=== PATIENT | female | born 1965 | race Caucasian/White ===

== ENCOUNTER 2017-02-08 11:34 | Outpatient (CLI) | payer BC ==
--- NOTE | 2017-02-08 12:28 | MMO ---
BILATERAL MAMMOGRAMS: DATE: 02/08/17 HISTORY: Screening mammography. COMPARISON: 03/03/10, 03/20/13, and 11/25/14. FINDINGS: Scattered fibroglandular densities and benign-appearing calcifications are apparent. Right axillary lymph nodes are now partially visualized. There is no dominant mass or suspicious calcification. The study was evaluated with the assistance of computer-aided detection. IMPRESSION: BIRADS 2: Benign Finding(s) Suggest routine follow-up. POS: [facility]
== END 2017-02-08 11:35 | disposition home or self-care (01) ==
LOC: MAMMO 11:34
PROVIDERS: ATTEND Nurse Practitioner Family
DX: Z12.31 Encounter for screening mammogram for malignant neoplasm of breast (principal)
CPT/HCPCS: 77067; G0202

== ENCOUNTER 2017-02-15 10:32 | Outpatient (CLI) | payer BC ==
--- NOTE | 2017-02-15 14:10 | ULT ---
GALLBLADDER ULTRASOUND: Date: 02/15/17 HISTORY: 51-year-old female with elevated liver enzymes. FINDINGS: The liver demonstrates homogeneous echotexture without focal mass or intrahepatic ductal dilatation. Mobile echogenic debris is seen in the gallbladder without shadowing. No gallbladder wall thickenin g or pericholecystic fluid is seen. The common duct measures 3.0 mm in diameter. The visualized port ions of the pancreas and the right kidney are unremarkable. No free fluid is seen. IMPRESSION: Gallbladder sludge, otherwise unremarkable exam. POS: [facility]
== END 2017-02-15 10:33 | disposition home or self-care (01) ==
LOC: ULT 10:32
PROVIDERS: ATTEND Internal Medicine Rheumatology
DX: R79.89 Other specified abnormal findings of blood chemistry (principal); K83.8 Other specified diseases of biliary tract
CPT/HCPCS: 76705

== ENCOUNTER 2017-07-31 12:36 | Outpatient (CLI) | payer BC ==
--- NOTE | 2017-07-31 16:34 | NM ---
NUCLEAR MEDICINE HEPATOBILIARY SCAN: DATE: 07-31-17 HISTORY: 52-year-old female with right upper quadrant abdominal pain. TECHNIQUE: [id number] dose: 5.2 mCi Ensure (fatty meal) dose: 8 oz. [id number] injected IV. Dynamic anterior scintigraphy of abdomen for 1 hour. Kinevac injected. Additional dynamic anterior scintigraphy of abdomen. Counts obtained over gallbladder. Time-activity curve generated. FINDINGS: There is normal uptake and washout of radiopharmaceutical agent from the liver. The gallbladder fill s normally. Bowel activity is visualized at an appropriate time. The gallbladder ejection fraction is normal: 84%. IMPRESSION: Normal. nicholas POS: [facility]
== END 2017-07-31 12:37 | disposition home or self-care (01) ==
LOC: NM 12:36
PROVIDERS: ATTEND Internal Medicine Gastroenterology
DX: K52.9 Noninfective gastroenteritis and colitis, unspecified (principal); R10.11 Right upper quadrant pain; R94.5 Abnormal results of liver function studies
CPT/HCPCS: 78227; A9537

== ENCOUNTER 2018-06-29 22:34 | Observation (INO) | payer BC ==
--- NOTE | 2018-06-29 23:10 | RAD ---
CHEST ONE VIEW: History: Chest pain. Comparison: 02-21-16 FINDINGS: Lungs are without focal airspace consolidation, pneumothorax or effusion. No acute osseous abnormalit y. IMPRESSION: No acute osseous abnormality. POS: [facility]
[2018-06-29 23:20] LABS: #Basophils 0.1 thou/uL (0.0-0.2); #Eosinphils 0.1 thou/uL (0.0-0.7); #Monocytes 0.6 thou/uL (0.11-0.59); %Eosinophils 1.3 % (0.0-10.0); %Lymphocytes 38.6 % (21.0-51.0); %Monocytes 7.9 % (0.0-10.0); %Neutrophils 51.2 % (42.0-75.0); Hemoglobin 13.4 g/dL (12.0-16.0); Mean Corpuscular HGB CONC 32.5 g/dL (32.0-36.0); Mean Corpuscular Hemoglobin 29.2 pg (27.0-31.0); Mean Platelet Volume 8.4 fL (7.4-10.4); Platelet Count 253 thou/uL (130-400); RBC Distribution Width 12.2 % (11.5-14.5); Red Blood Cell (RBC) Count 4.58 mill/uL (4.20-5.40); White Blood Cell (WBC) Count 7.8 thou/uL (4.8-10.8)
[2018-06-29 23:51] LABS: ALT (SGPT) 23 U/L (8-55); AST (SGOT) 27 U/L (5-34); Alkaline Phosphatase 99 U/L (40-150); Anion Gap 16 mmol/L (10-20); BUN (Urea Nitrogen) 14 mg/dL (9.8-20.1); Bilirubin, Total 0.3 mg/dL (0.2-1.2); Calc. Creatinine Clearance 0 mL/min (70-130); Calcium 9.9 mg/dL (7.8-10.44); Carbon Dioxide 19 mmol/L (22-29); Chloride 110 mmol/L (98-107); Estimated GFR-MDRD 72; Globulin 3.4 g/dL (2.4-3.5); Glucose 89 mg/dL (70-105); Potassium 4.5 mmol/L (3.5-5.1); Protein, Total 7.4 g/dL (6.0-8.3); Sodium 140 mmol/L (136-145)
[2018-06-30] MEDS ORDERED: Aspirin Chewable 81 MG TAB ONE (00:05)
[2018-06-30] MEDS ORDERED: Ondansetron PF 4 MG/2 ML Vial IVP PRN (01:34)
[2018-06-30] MEDS ORDERED: Ondansetron ODT 4 MG TAB SL PRN (01:34)
[2018-06-30] MEDS ORDERED: Acetaminophen 325 MG TAB PO PRN (01:34)
[2018-06-30] MEDS ORDERED: Nitroglycerin 0.4 MG TAB (25 Tab Bottle) SL PRN (01:35)
[2018-06-30 02:27] VITALS: BMI 38.4
[2018-06-30] MEDS ORDERED: Sodium Chloride 0.9% 1,000 ML IV SCH (02:30)
[2018-06-30] MEDS ORDERED: Bisacodyl 5 MG TAB PO PRN (02:30)
[2018-06-30] MEDS ORDERED: hydrALAZINE 20 MG/ML VIAL SLOW IVP PRN (02:57)
--- NOTE | 2018-06-30 03:47 | HP ---
PRIMARY CARE PHYSICIAN: Garrett Jones MD CHIEF COMPLAINT: Chest pain. HISTORY OF PRESENT ILLNESS: The patient is a 53-year-old female with past medical history of rheumatoid arthritis; hypertension, controlled with weight loss and diet, who presents to the emergency department for chest pain. The patient's chest pain has been going on for 3 days and it was starting to get worse especially with activities. The chest pain was resolved after the patient rest. The patient reports that her chest pain was substernal and nonradiating. The patient denies any chest pain at this point. The patient denies any history of heart problems. No history of family heart problems. The patient denies any abdominal pain, nausea , vomiting, or diarrhea. The patient does not take any other medication except for [id number]-cyopmhg Motrin. ALLERGIES: NO KNOWN ALLERGIES TO DRUGS. CURRENT MEDICATIONS: [id number] Motrin. PAST MEDICAL HISTORY: Rheumatoid arthritis. PAST SURGICAL HISTORY: Hysterectomy and tonsillectomy. SOCIAL HISTORY: The patient denies any alcohol use, drug use, or smoking. FAMILY HISTORY: Denies any history of heart problems. REVIEW OF SYSTEMS: A 10-point review of systems negative, other than mentioned in the HPI. PHYSICAL EXAMINATION: VITAL SIGNS: Blood pressure 142/84, pulse 82, respiratory rate 18, and temperature 98.4. The patient's O2 saturation is 95% on room air. GENERAL: The patient is alert and is able to respond to my questions. HEENT: Head, atraumatic. Ears, nose, and throat; no exudate or bleeding noted. NECK: No lymphadenopathy or JVD noted. CARDIOVASCULAR: No murmur, rubs, or gallop. Regular rate and rhythm. PULMONARY: Bilaterally, no wheezes noted. ABDOMEN: Soft and nontender. Bowel sounds are positive. EXTREMITIES: No edema noted. SKIN: No rashes noted. NEUROLOGIC: The patient is alert and cooperative. LABORATORY DATA: Sodium 140, potassium 4.5, chloride 110, carbon dioxide 19, BUN 14, creatinine 0.83, and glucose 89. Troponin negative. White blood cell count 7.8, hemoglobin 13.4, hematocrit 41.2, and platelets 253. DIAGNOSTIC DATA: Chest x-ray, negative for acute cardiopulmonary abnormality. EKG reviewed, appeared to be normal sinus rhythm, QT/QTC 386/438. ASSESSMENT: 1. Angina. 2. Elevated blood pressure. 3. Chest pain. PLAN: Pt will be admitted for ACS r/o. Differential diagnosis includes stable versus unstable angina. So far, first troponin negative at this point. We will trend troponin, tele. The patient reports history of pericarditis. This pain does not seem to be pericarditis in nature. The patient will be kept n.p.o. Echocardiogram ordered. Stress test ordered. Cardiology consult placed. Blood pressure above goal. We will add hydralazine p.r.n. at this point. The patient is a full code. Medical power of energy attorney, . DVT prophylaxis addressed. Job ID: [id number] MTDD
[2018-06-30 03:57] LABS: Troponin I Less than 0.010 ng/mL (< 0.028)
[2018-06-30 07:03] LABS: #Basophils 0.1 thou/uL (0.0-0.2); #Eosinphils 0.1 thou/uL (0.0-0.7); #Lymphocytes 2.5 thou/uL (1.20-3.40); #Monocytes 0.6 thou/uL (0.11-0.59); #Neutrophils 2.6 thou/uL (1.40-6.50); %Basophils 1.2 % (0.0-1.0); %Eosinophils 1.7 % (0.0-10.0); %Lymphocytes 42.5 % (21.0-51.0); %Monocytes 10.4 % (0.0-10.0); %Neutrophils 44.2 % (42.0-75.0); Hemoglobin 12.4 g/dL (12.0-16.0); Mean Corpuscular HGB CONC 32.1 g/dL (32.0-36.0); Mean Corpuscular Hemoglobin 29.3 pg (27.0-31.0); Mean Corpuscular Volume 91.4 fL (78.0-98.0); Mean Platelet Volume 8.6 fL (7.4-10.4); Platelet Count 217 thou/uL (130-400); RBC Distribution Width 12.2 % (11.5-14.5); Red Blood Cell (RBC) Count 4.24 mill/uL (4.20-5.40); White Blood Cell (WBC) Count 5.9 thou/uL (4.8-10.8)
[2018-06-30 07:23] LABS: Anion Gap 12 mmol/L (10-20); BUN (Urea Nitrogen) 13 mg/dL (9.8-20.1); Calc. Creatinine Clearance 152 mL/min (70-130); Calcium 9.4 mg/dL (7.8-10.44); Carbon Dioxide 22 mmol/L (22-29); Cardiac Risk 4.8 (Less than 4.5); Chloride 109 mmol/L (98-107); Cholesterol 192 mg/dl (< 200 Desired); Estimated GFR-MDRD 81; Glucose 83 mg/dL (70-105); HDL Cholesterol 40 mg/dL (>60 Neg Risk); LDL Cholesterol, Calculated 123 mg/dL; Potassium 3.9 mmol/L (3.5-5.1); Sodium 139 mmol/L (136-145); Triglycerides 143 mg/dL (Less than 150)
[2018-06-30 07:49] LABS: Troponin I Less than 0.010 ng/mL (< 0.028)
[2018-06-30] MEDS ORDERED: Aspirin Chewable 81 MG TAB PO SCH (09:00)
[2018-06-30] MEDS: Enoxaparin Sodium 40 MG/0.4 ML SYRINGE SC SCH (09:21)
--- NOTE | 2018-06-30 13:55 | PDOC.EVN ---
Event Note - Event Note Event Note: pt seen and examined. chart reviewed. PMH of RA associated Pericarditis All Qs ansewred. no risk factors for CAD. c/o on and off chest discomfort for 3 days suspoicious for angina get ECHO and Stress test as ordered. ASA 81 mg /day. check lipid panel. Cancel cardiology consult. monitor. HD stable
[2018-07-01] MEDS: Enoxaparin Sodium 40 MG/0.4 ML SYRINGE SC SCH (08:28)
[2018-07-01] MEDS ORDERED: Iopamidol 370 76% 100 ML VIAL ONE (10:31)
--- NOTE | 2018-07-01 13:31 | PDOC.PN ---
- Subjective Encounter Start Date: 07/01/18 Encounter Start Time: 13:30 Subjective: continues to c/o difficulty breathing w exertion and chest pressure -: worried that she might have pericarditis again & requests to be seen by -: cardiology. - Objective Resuscitation Status - Order Detail: 06/30/18 02:29 Resuscitation Status Routine Resuscitation Status: FULL: Full Resuscitation MAR Reviewed: Yes Vital Signs & Weight: Vital Signs (12 hours) Temp Pulse Resp BP Pulse Ox 07/01/18 11:38 98.5 F 82 18 138/76 94 L 07/01/18 08:00 98 F 84 18 126/78 94 L 07/01/18 04:57 98 F 81 15 130/73 96 Weight Weight 244 lb I&O: 06/30/18 07/01/18 07/02/18 06:59 06:59 06:59 Intake Total 223 1380 Output Total 225 300 Balance -2 1080 Result Diagrams: 06/30/18 06:24 06/30/18 06:24 Additional Labs: Microbiology 06/29/18 23:43 Nasal swab Influenza Types A,B Direct EIA - Final Radiology Reviewed by me: Yes (ECHO-no pericardial effusion.NL EF.mild diastolic dysFx) Phys Exam - Physical Examination Constitutional: NAD afebrile HEENT: PERRLA, moist MMs, sclera anicteric, oral pharynx no lesions Neck: no nodes, no JVD, supple, full ROM Respiratory: no wheezing, no rales, no rhonchi, clear to auscultation bilateral Cardiovascular: RRR, no significant murmur, no rub Gastrointestinal: soft, non-tender, no distention, positive bowel sounds Musculoskeletal: no edema, pulses present Neurological: non-focal, normal sensation, moves all 4 limbs Psychiatric: normal affect, A&O x 3 Skin: no rash Dx/Plan (1) Chest pain Code(s): R07.9 - CHEST PAIN, UNSPECIFIED Status: Acute Comment: NL Stress test and ECHO. Cardiac Enzymes trended and WNL. 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 will hold DC for now untill cardio clearance * . Review of Systems - Review of Systems Constitutional: malaise. negative: fever, chills, sweats, weakness, other ENT: negative: Ear Pain, Ear Discharge, Nose Pain, Nose Discharge, Nose Congestion, Mouth Pain, Mouth Swelling, Throat Pain, Throat Swelling, Other Respiratory: SOB with Excertion. negative: Cough, Dry, Shortness of Breath, Hemoptysis, Pleuritic Pain, Sputum, Wheezing Cardiovascular: chest pain. negative: palpitations, orthopnea, paroxysmal nocturnal dyspnea, edema, light headedness, other Gastrointestinal: negative: Nausea, Vomiting, Abdominal Pain, Diarrhea, Constipation, Melena, Hematochezia, Other Genitourinary: negative: Dysuria, Frequency, Incontinence, Hematuria, Retention , Other Musculoskeletal: negative: Neck Pain, Shoulder Pain, Arm Pain, Back Pain, Hand Pain, Leg Pain, Foot Pain, Other Skin: negative: Rash, Lesions, Solomon, Bruising, Other Neurological: negative: Weakness, Numbness, Incoordination, Change in Speech, Confusion, Seizures, Other - Medications/Allergies Allergies/Adverse Reactions: Allergies Allergy/AdvReac Type Severity Reaction Status Date / Time No Known Drug Allergies Allergy Verified 06/30/18 01:52 Medications: Current Medications Bisacodyl (Dulcolax) 10 mg PO DAILYPRN PRN PRN Reason: Constipation Enoxaparin Sodium (Lovenox) 40 mg SC 0900 [facility] Last Admin: 07/01/18 08:28 Dose: Not Given Hydralazine HCl (Apresoline) 10 mg SLOW IVP Q4H PRN PRN Reason: SBP Greater Than 170 Sodium Chloride (Flush - Normal Saline) 10 ml IVF Q12HR [facility] Last Admin: 07/01/18 08:29 Dose: Not Given Sodium Chloride (Flush - Normal Saline) 10 ml IVF PRN PRN PRN Reason: Saline Flush
[2018-07-01] MEDS ORDERED: Heparin 10,000 UNITS/1 ML VIAL ONE (14:32)
[2018-07-01] MEDS ORDERED: Midazolam HCl 2 mg/2 ml Vial ONE (15:37)
[2018-07-01] MEDS ORDERED: Fentanyl 100 MCG/2 ML VIAL ONE (15:37)
[2018-07-01] MEDS ORDERED: Metoprolol Tartrate 5 MG/5 ML VIAL ONE (16:40)
[2018-07-01] MEDS ORDERED: Sodium Chloride 0.9% 200 ML IV PRN (16:47)
[2018-07-01] MEDS ORDERED: Acetaminophen/Codeine 30-300mg Tablet PO PRN ×2 (16:47)
[2018-07-01] MEDS ORDERED: Nitroglycerin 0.4 MG TAB (25 Tab Bottle) SL PRN (16:47)
--- NOTE | 2018-07-01 22:37 | CON ---
DATE OF CONSULTATION: HISTORY OF PRESENT ILLNESS: The patient is a pleasant 53-year-old woman, who presents with increasing dyspnea and chest discomfort. The patient has a history of pericarditis. She states many years ago, she has had an episode of pericarditis. She has subsequently done well. She does notice having dyspnea on exertion. Most recently, she started having chest discomfort with exertion. She states with minimal exertion she develops mid sternal chest discomfort, this relieved by rest. The patient denies any chest pain at rest. The patient denies having any PND or orthopnea. PAST MEDICAL HISTORY: 1. Hypertension. 2. Rheumatoid arthritis. PAST SURGICAL HISTORY: Tonsillectomy, left shoulder surgery, hysterectomy, tubal ligation. SOCIAL HISTORY: Nonsmoker. FAMILY HISTORY: There is no strong family history of heart disease. ALLERGIES: NO KNOWN DRUG ALLERGIES. MEDICATION: On admission, Motrin p.r.n. REVIEW OF SYSTEMS: Ten-point system otherwise unremarkable. PHYSICAL EXAMINATION: GENERAL: Obese woman, in no acute distress. VITAL SIGNS: Blood pressure 130/76. NECK: No jugular venous distention. No carotid bruits. LUNGS: Clear to auscultation. HEART: Regular rate and rhythm. Normal S1, S2. No murmurs. ABDOMEN: Distended. EXTREMITIES: Showed no edema. VASCULAR: Radial pulses 2+. LABORATORY DATA: Sodium 139, potassium 3.9, chloride 109, bicarb 22, BUN 13, creatinine 0.75. Troponin less than 0.01. White blood cell count 5.9, hemoglobin 12.4, hematocrit 38.7, and platelets 217. Her EKG revealed her to have normal sinus rhythm with poor R-wave progression. The echocardiogram revealed her to have normal left ventricular ejection fraction of 50% to 55% with diastolic dysfunction, mild mitral regurgitation, mild tricuspid regurgitation. Exercise treadmill test. The patient exercised for 5 minutes on a Miki protocol. There was no significant ST depression. There was no evidence of ischemia. Normal exercise treadmill test except for poor exercise tolerance. IMPRESSION: 1. Chest pain. 2. Hypertension. 3. Rheumatoid arthritis. 4. Obesity. This patient presents with recurrent chest pain with exertion. Exercise treadmill test with no evidence of ischemia. The patient's symptoms still could represent ischemic heart disease. I have discussed the option of further evaluation including cardiac catheterization. The patient would prefer a definitive diagnosis. I will also check D-dimer to make sure there is no evidence of pulmonary embolus. PLAN: 1. Check D-dimer. 2. CT scan to rule out pulmonary embolus. 3. Proceed with possible cardiac catheterization during this hospitalization. Job ID: [id number] MIKAEL
[2018-07-02 08:06] VITALS: BP 109/81; TEMP 97.6
[2018-07-02] MEDS: Enoxaparin Sodium 40 MG/0.4 ML SYRINGE SC SCH (09:43)
--- NOTE | 2018-07-03 05:08 | DIS ---
DATE OF ADMISSION: 06/30/2018 DATE OF DISCHARGE: 07/02/2018 PRIMARY CARE PHYSICIAN: Garrett Jones MD DISCHARGE DISPOSITION: Home. DISCHARGE DIAGNOSES: 1. Chest pain, unclear etiology. Pericarditis versus angina as per Cardiology. 2. History of pericarditis. 3. Rheumatoid arthritis. PROCEDURES DONE IN THE HOSPITAL: 1. Treadmill stress test which is negative for any evidence of ischemia or reversibility. 2. Transthoracic echocardiogram, which shows preserved ejection fraction of 50% to 55% and diastolic dysfunction. 3. Cardiac catheterization which shows absolutely no coronary artery disease. CONSULTATIONS IN-HOUSE: Cardiology, Dr. Craig. DISCHARGE MEDICATIONS: Ranexa 1000 mg p.o. b.i.d. as per Dr. Craig and resume golimumab infusions as per her stock patcher. HISTORY OF PRESENTING ILLNESS: Ms. Keith is a pleasant 53-year-old female with known history of rheumatoid arthritis and history of pericarditis related to RA many years ago, who presented to the emergency room with complaints of chest pain. She was feeling pleuritic type chest pain, as well as shortness of breath on exertion. She was initially admitted to tele floor under observation status for ACS rule out. Her EKG, chest x-ray, and cardiac enzymes upon presentation were unremarkable. She was hemodynamically stable. Please see admission history and physical for further details. HOSPITAL COURSE: The patient's serial cardiac enzymes were trended and were negative. She underwent an echocardiogram as well as treadmill stress test, both of them were unremarkable. Serial cardiac enzymes were negative. Lipid panel was negative. The patient continued to have persistent symptoms and for her history of pericarditis, Cardiology was consulted. Dr. Craig saw the patient and did a D-dimer, which was negative. He also took the patient for a cardiac catheterization, which was normal and she has been started on Ranexa by him for some unknown reason. The patient tells me that it was because she was told by Dr. Craig that her coronaries are very small. This brings the possibility of possible angina-like symptoms. She wants to further discuss the use of Ranexa with her primary care physician and her primary stock patcher and I have encouraged her to do so. By the day of discharge, her symptoms have completely resolved. I did advice her that it most likely might be pericarditis, which was a self-limiting episode. If her symptoms happen again, she is encouraged to use the ibuprofen as she has done in the past. For now, she is hemodynamically stable and asymptomatic and will be discharged home. Discharge plan was discussed with the patient, who verbalized understanding. She was seen and examined prior to discharge. PHYSICAL EXAMINATION: VITAL SIGNS: This morning, vital signs, temperature 97.6, pulse of 70, respirations 18, saturating 95% on room air, and blood pressure 109/81. GENERAL: No acute distress. Awake, alert, and oriented x3. CHEST: Clear to auscultation bilaterally. HEART: Rate and rhythm are regular. She was instructed to monitor her blood pressure twice a day with a blood pressure machine that she has at home, especially if she is going to be taking the Ranexa. She is not sure if she will be taking this medication or not. She will discuss this further with her primary care physician. Job ID: [id number]
--- NOTE | 2018-07-07 13:34 | STRESS ---
Acquisition Time: 2018-06-30 09:22:17 Total Exercise Time: 00:05:01 Test Indications: CHEST PAIN Medications: Protocol: OSMAR Max HR: 164 BPM 98% of Pred: 167 BPM Max BP: 162/080 mmHG Max Work Load: 7.0 METS RESTING ECG: NORMAL SINUS RHYTHM AT 91 BPM WITH POOR R-WAVE PROGRESSION SYMPTOMS: DYSPNEA ON EXERTION NORMAL BP RESPONSE ECTOPY: RARE PVC'S ECG STRESS: NO SIGNIFICANT CHANGES INTERPRETATION: NEGATIVE GXT Confirmed by FLOYD MANZO ([id number]), book or script editor MAURO CASTANO ([id number]) on 07/07/2018 1:33:50 PM Referred By: MD Griselda MONREAL Confirmed By:FLOYD MANZO
== END 2018-07-02 12:08 | disposition home or self-care (01) ==
LOC: ERS 22:34 → 2SW 06-30 01:19
PROVIDERS: ADMIT Family Medicine; ATTEND Family Medicine
PROC: 4A023N7 Measurement of Cardiac Sampling and Pressure, Left Heart, Percutaneous Approach (ICD-10-PCS; principal; 2018-07-02)
PROC: B2151ZZ Fluoroscopy of Left Heart using Low Osmolar Contrast (ICD-10-PCS; 2018-07-02)
DX: R07.81 Pleurodynia (principal); R06.02 Shortness of breath; M06.9 Rheumatoid arthritis, unspecified; I10 Essential (primary) hypertension; E66.9 Obesity, unspecified; Z68.38 Body mass index [BMI] 38.0-38.9, adult
CPT/HCPCS: 36415; 71045; 80048; 80053; 80061; 84484; 85025; 85379; 87804; 93005; 93010; 93017; 93306; 93458; 94760; 96360; 96361; 99152; 99153; C1769; G0378; J1644; J1650; J2250; J3010; Q9967

== ENCOUNTER 2018-07-04 17:38 | Inpatient (IN) | payer BC ==
[~2018-07-04 17:38] MED LIST: ISOVUE-370 76%-LOCM 1 ML ONE
[2018-07-04 18:18] LABS: #Basophils 0.1 thou/uL (0.0-0.2); #Eosinphils 0.1 thou/uL (0.0-0.7); #Lymphocytes 3.2 thou/uL (1.20-3.40); #Monocytes 0.6 thou/uL (0.11-0.59); #Neutrophils 4.2 thou/uL (1.40-6.50); %Basophils 1.2 % (0.0-1.0); %Eosinophils 1.5 % (0.0-10.0); %Lymphocytes 38.5 % (21.0-51.0); %Monocytes 7.8 % (0.0-10.0); Hemoglobin 14.6 g/dL (12.0-16.0); Mean Corpuscular HGB CONC 31.8 g/dL (32.0-36.0); Mean Corpuscular Hemoglobin 28.9 pg (27.0-31.0); Mean Corpuscular Volume 90.7 fL (78.0-98.0); Mean Platelet Volume 8.4 fL (7.4-10.4); Platelet Count 290 thou/uL (130-400); RBC Distribution Width 12.3 % (11.5-14.5); Red Blood Cell (RBC) Count 5.04 mill/uL (4.20-5.40); White Blood Cell (WBC) Count 8.2 thou/uL (4.8-10.8)
[2018-07-04 18:38] LABS: ALT (SGPT) 17 U/L (8-55); AST (SGOT) 17 U/L (5-34); Albumin 4.5 g/dL (3.5-5.0); Alkaline Phosphatase 114 U/L (40-150); Anion Gap 14 mmol/L (10-20); BUN (Urea Nitrogen) 19 mg/dL (9.8-20.1); Bilirubin, Total 0.4 mg/dL (0.2-1.2); CK (CPK) 34 U/L (29-168); Calc. Creatinine Clearance 0 mL/min (70-130); Calcium 10.6 mg/dL (7.8-10.44); Carbon Dioxide 25 mmol/L (22-29); Chloride 105 mmol/L (98-107); Estimated GFR-MDRD 65; Glucose 89 mg/dL (70-105); Potassium 3.9 mmol/L (3.5-5.1); Protein, Total 7.5 g/dL (6.0-8.3); Sodium 140 mmol/L (136-145)
--- NOTE | 2018-07-04 19:43 | RAD ---
TWO VIEWS CHEST 07/04/18 HISTORY: Dyspnea. COMPARISON: Comparison made to previous exam from 06/23/13. FINDINGS/IMPRESSION: Two views chest demonstrates the lungs to be well aerated. No evidence of active intrathoracic diseas e seen. No evidence of effusions, pneumonia or pneumothorax seen. POS: [facility]
[2018-07-04 20:00] LABS: Bilirubin Negative (Negative); Blood, Urine Negative (Negative); Clarity CLEAR (Clear); Glucose, Urine (Dipstick) Negative (Negative); Leukocyte Negative (Negative); Nitrite Negative (Negative); Protein, Urine (Dipstick) Negative (Neg-Trace); Specific Gravity, Urine 1.012 (1.002-1.036); Urobilinogen 0.2 mg/dL (0.2-1.0)
[2018-07-04] MEDS ORDERED: Piperacillin/Tazobactam 4.5 GM VIAL ONE (20:37)
[2018-07-04] MEDS ORDERED: Enoxaparin Sodium 30 MG/0.3 ML SYRINGE ONE (20:39)
[2018-07-04] MEDS ORDERED: Enoxaparin Sodium 100 MG/ML SYRINGE ONE (20:39)
[2018-07-04] MEDS ORDERED: Enoxaparin Sodium 60 MG/0.6 ML SYRINGE ONE (20:42)
[2018-07-04] MEDS ORDERED: Enoxaparin Sodium 40 MG/0.4 ML SYRINGE ONE (20:42)
--- NOTE | 2018-07-04 20:56 | CT ---
CONTRAST ENHANCED CTA CHEST 07/04/18 HISTORY: Dyspnea. Contrast enhanced CTA chest performed. 2D and 3D reconstruction images performed on an independent 3D workstation. CTA chest demonstrates extensive diffuse bilateral lung parenchymal air space opacities compatible wi th pulmonary edema. There is some cardiomegaly seen. There are areas of filling defect seen in the right upper lobe pulmonary arteries concerning for righ t upper lobe pulmonary emboli. IMPRESSION: 1. Bilateral extensive air space opacities concerning for pulmonary edema or bilateral pneumonia . 2. Filling defects seen in the right upper lobe pulmonary arteries compatible with pulmonary emb lane. POS: [facility]
[2018-07-04] MEDS ORDERED: diphenhydrAMINE 50 MG/ML VIAL ONE (21:59)
[2018-07-05 00:15] VITALS: BMI 38.5
[2018-07-05] MEDS ORDERED: Ondansetron ODT 4 MG TAB PO PRN (02:04)
[2018-07-05] MEDS ORDERED: Acetaminophen 650 MG Suppository PR PRN (02:04)
[2018-07-05] MEDS ORDERED: Ondansetron PF 4 MG/2 ML Vial IVP PRN (02:04)
[2018-07-05 06:06] LABS: #Basophils 0.1 thou/uL (0.0-0.2); #Eosinphils 0.1 thou/uL (0.0-0.7); #Lymphocytes 2.6 thou/uL (1.20-3.40); #Monocytes 0.6 thou/uL (0.11-0.59); #Neutrophils 2.7 thou/uL (1.40-6.50); %Basophils 1.6 % (0.0-1.0); %Eosinophils 1.6 % (0.0-10.0); %Lymphocytes 42.4 % (21.0-51.0); %Monocytes 10.1 % (0.0-10.0); %Neutrophils 44.3 % (42.0-75.0); Hemoglobin 14.4 g/dL (12.0-16.0); Mean Corpuscular HGB CONC 32.5 g/dL (32.0-36.0); Mean Corpuscular Hemoglobin 29.4 pg (27.0-31.0); Mean Corpuscular Volume 90.5 fL (78.0-98.0); Mean Platelet Volume 8.3 fL (7.4-10.4); Platelet Count 252 thou/uL (130-400); RBC Distribution Width 12.4 % (11.5-14.5); Red Blood Cell (RBC) Count 4.89 mill/uL (4.20-5.40)
[2018-07-05 06:28] LABS: Anion Gap 12 mmol/L (10-20); BUN (Urea Nitrogen) 17 mg/dL (9.8-20.1); Calc. Creatinine Clearance 136 mL/min (70-130); Calcium 10.2 mg/dL (7.8-10.44); Carbon Dioxide 23 mmol/L (22-29); Chloride 107 mmol/L (98-107); Estimated GFR-MDRD 71; Glucose 92 mg/dL (70-105); Sodium 138 mmol/L (136-145)
--- NOTE | 2018-07-05 07:36 | HP ---
PRIMARY CARE DOCTOR: Garrett Jones MD CODE STATUS: Full code. TIME OF EVALUATION: 08:50 p.m. CHIEF COMPLAINT: Shortness of breath. HISTORY OF PRESENT ILLNESS: This is a 53-year-old female patient with past medical history of recent admission. The patient received cardiac workup including cardiac cath and no abnormalities were found, also has a history of RA, pericarditis on immunosuppression medications, came to the hospital after having shortness of breath, that has been present for the past few weeks with no clear triggers, no alleviating factors. Has become severe, has been getting worse. The patient with inability to do her activities of daily living. REVIEW OF SYSTEMS: CONSTITUTIONAL: No fever, chills, or generalized weakness. RESPIRATORY: The patient has shortness of breath as described in HPI. No sputum production. No cough. CARDIOVASCULAR: No chest pain or palpitation. GASTROINTESTINAL: No nausea, no vomiting, diarrhea, or abdominal pain. BOOM BOSS: No dizziness, headache, or feeling lightheaded. GENITOURINARY: No burning on urination. EXTREMITIES: No leg swelling. All other systems were reviewed and negative except for the findings mentioned above. PAST MEDICAL HISTORY: As mentioned in the HPI. PAST SURGICAL HISTORY: Left shoulder surgery, tubal ligation, surgical history of hysterectomy, and surgical history of tonsillectomy. PSYCHIATRIC HISTORY: No previous psych history. SOCIAL HISTORY: No alcohol. No drugs. No smoking history. FAMILY HISTORY: Reviewed and noncontributory to current presentation. KNOWN ALLERGIES: No known drug allergies. REPORTED MEDICATIONS: Motrin. PHYSICAL EXAMINATION: VITAL SIGNS: On presentation, blood pressure 135/87 with heart rate 87, respiratory rate was 18, temperature 98.1, and oxygen saturation was 97% on room air. GENERAL APPEARANCE: The patient is alert, oriented, no acute distress. HEENT: Eye, normal conjunctivae. Moist oral mucosa. Anicteric. No JVD. RESPIRATORY: Bilateral air entry. No rales, no wheezes. Symmetric expansion. CARDIOVASCULAR: Normal rate, regular rhythm. No murmurs, no gallops. No edema. ABDOMEN: Soft. Normal bowel sounds. MUSCULOSKELETAL: Baseline range of motion and strength. No tenderness. SKIN: Warm and intact. No pallor. No rash. No redness. Peripheral pulses are present. Capillary refill seems to be intact. NEURO: No evidence of any new focal weakness. Baseline speech. Cranial nerve seems to be intact. PSYCH: The patient is in good mood. No anxiety. Optimal judgment. IMAGING STUDIES: EKG was reviewed. The patient has normal sinus rhythm with a rate of 88, OH 176, QRS 60, and QT corrected 404. Chest x-ray, two-views chest demonstrate the lungs to be well-hydrated. No evidence of active intrathoracic disease. No evidence of effusion or pneumonia or pneumothorax in the chest CT. The patient has bilateral extensive airspace opacities concerning for pulmonary edema, bilateral pneumonia, filling defect seen in the right upper lobe, pulmonary arteries compatible with pulmonary embolism. LABORATORY DATA: Labs were reviewed. The patient has white count 8.2, hemoglobin 14.6, MCV 90.7, platelet count 290. ESR is 38. Sodium 140, potassium 3.9, chloride 105, carbon dioxide 25, anion gap 14, BUN 19, creatinine 0.9, GFR 65, glucose 89, calcium 10.6, total bilirubin 0.4, AST 17, ALT 17, alkaline phosphatase 114. CK 34, troponin 1 negative. C-reactive protein 0.67. Beta-natriuretic peptide was less than 10. Serum total protein 7.5. Urine was negative. ASSESSMENT AND PLAN: The patient has been placed in the hospital with following medical problems: 1. Pulmonary embolism seen on the CAT scan. The patient has been started on anticoagulation, will be continued for now. She is switched to p.o. as soon as the patient decides which anticoagulant to begin her on. 2. Abnormal CT chest and bilateral haziness and ground-glass opacities of unclear etiology. Dr. Sims is being consulted as per the patient's request, who is a shactor helper she would like to see, this may be related to the patient's current presentations, this could be secondary to rheumatoid arthritis. 3. Rheumatoid arthritis. Reconcile home medications. Adjust as needed. 4. Deep venous thrombosis prophylaxis. The patient received full dose Lovenox. Job ID: [id number]
[2018-07-05 09:00] LABS: Hemoglobin 13.8 g/dL (12.0-16.0); Platelet Count 232 thou/uL (130-400)
[2018-07-05] MEDS: Enoxaparin Sodium 120 MG/0.8 ML SYRINGE SC SCH ×2 (09:12→20:15)
[2018-07-05] MEDS: Famotidine/PF 20 mg/2ml Vial SLOW IVP SCH ×2 (09:13→20:15)
--- NOTE | 2018-07-05 14:32 | PRG ---
DATE OF SERVICE: 07/05/2018 SUBJECTIVE: The patient was seen and examined at the bedside with family several members were present in the room during my visit. She feels slightly better. She says that she had chills at home. She did not check her temperature. OBJECTIVE: VITAL SIGNS: Blood pressure is 115/67; temperature is 98.2, maximal temperature is 98.3; respiratory rate is 20, and O2 saturations 94% on 2 L by nasal cannula. HEENT: Head is atraumatic and normocephalic. Eyes are PERRLA. Sclerae are nonicteric. Oral mucosa is moist. NECK: Supple. LUNGS: Few crackles at both bases. HEART: S1 and S2 normal. No S3. No S4. No any murmur. ABDOMEN: Soft, obese, and nontender. Bowel sounds are present. No organomegaly. EXTREMITIES: No clubbing, cyanosis, or edema. NEUROLOGIC: She is alert and oriented x4. There is no any motor or sensory deficits present. Cranial nerves are intact. LABORATORY DATA: Labs showed normal chemistry; normal CBC, creatinine 0.91. Microbiology, preliminary, two blood cultures, no growth. IMPRESSION: 1. Shortness of breath with positive findings on the CT scan for pulmonary embolism and bilateral lower lobes ground-glass opacities of unclear etiology. The patient received 3 antibiotics in the emergency room and she had itching reaction post that, so she was not continued on any antibiotics after this reaction. Cranberry Grower, Dr. Hernandez is coming to see her. She is on full dose of Lovenox at this point. She is on O2. 2. Rheumatoid arthritis, biologic, which is Simponi Aria every eight weeks and last dose was 3 to 4 weeks ago. PLAN: She will continue on her full dose of Lovenox for PE. We will get Doppler of her lower extremities. We will continue O2 and we will get Pulmonary consultation with Dr. Hernandez and we are holding off using any antibiotics for now until he sees the patient. Job ID: [id number]
--- NOTE | 2018-07-05 15:24 | ULT ---
BILATERAL LOWER EXTREMITY VENOUS DUPLEX SONOGRAM: Date: 07/05/18 HISTORY: Bilateral leg pain and edema. Pulmonary emboli. FINDINGS: Each common femoral vein and greater saphenous junction were evaluated along with each femoral and de ep femoral, popliteal, and posterior tibial vein. There is good color and spectral Doppler flow, comp ression, and augmentation. IMPRESSION: No sonographic evidence of deep venous thrombosis within either lower extremity. POS: [facility]
--- NOTE | 2018-07-05 18:15 | CON ---
DATE OF CONSULTATION: 07/05/2018 SERVICE: Pulmonary Medicine. REASON FOR CONSULTATION: Pulmonary infiltrate. HISTORY OF PRESENT ILLNESS: The patient is a 53-year-old white female with past medical history significant for essentially nothing. She has rheumatoid arthritis and is on disease modifying therapy (golimumab). Outside of this, she takes no medications. She does use a lot of essential oils. She was in her usual state of health until about 3 to 4 weeks prior to presentation when she started having generalized malaise and lack of energy. Eventually, she started having some onset of a little bit of chest discomfort and shortness of breath, particularly with exertion. She presented to the hospital on June 30, 2018. Ultimately, she was worked up for chest discomfort. She had an echocardiogram and cardiac catheterization that were essentially unremarkable. She was subsequently discharged from the hospital on the 02 July 2018. Two days later, she returned to the hospital because of increasing dyspnea with exertion and chest discomfort. Chest x-ray was essentially unremarkable, but a CTA of the chest showed a small pulmonary embolism, which was questionable at best and diffuse ground-glass opacifications throughout bilateral lung kaplan. She indicates having some feelings of being febrile. That being said, she never really took her temperature. Otherwise, she is in her usual state of health and has no specific complaints. Her rheumatoid arthritis has been under excellent control. She has not had any hot or red swollen joints, rashes, dysuria, or frequency. She has never had a procedure that pulled fluid off her lung or her heart. She has not had any eye infections or require eye medications at any point. Her vision is essentially unremarkable. PAST MEDICAL HISTORY: 1. Rheumatoid arthritis. 2. History of pericarditis. PAST SURGICAL HISTORY: 1. Left shoulder surgery. 2. Tubal ligation. 3. Hysterectomy. 4. Tonsillectomy. 5. Cardiac catheterization. SOCIAL HISTORY: Negative for alcohol, tobacco, or illicit drug use. She has no exposure to chemicals, dust, asbestos, or tuberculosis. She gets an annual PPD. This has been negative to date. She does use a lot of essential oils that she rubs into her feet and hands. FAMILY HISTORY: Noncontributory. ALLERGIES: LEVOFLOXACIN OR VANCOMYCIN CAUSED A LITTLE BIT OF A RASH AND SEVERE PRURITUS. MEDICATIONS: List of her outpatient and inpatient medications was reviewed. Multiple updates were made. REVIEW OF SYSTEMS: General, head, ears, eyes, nose, throat, cardiovascular, respiratory, GI, , musculoskeletal, neurologic, and skin are negative except as mentioned in the HPI. PHYSICAL EXAMINATION: VITAL SIGNS: Afebrile, pulse 82, blood pressure 115/67, respirations 20, and saturation 94% on 2 L nasal cannula. GENERAL: The patient is awake and alert, in no apparent distress. LUNGS: There is absolutely wonderful air entry and no hint of a prolonged expiratory phase. There are absolutely no crackles, wheezing, or rhonchi present. HEART: Normal rate. Regular. ABDOMEN: Soft, nontender, and nondistended. Bowel sounds are positive. MUSCULOSKELETAL: No cyanosis or clubbing. There is no pitting in the bilateral lower extremities. NEUROLOGIC: Grossly nonfocal. LABORATORY DATA: CBC is completely unremarkable. The differential is close to normal. Lymphocyte neutrophil counts are perfectly normal. Basophils will predominate slightly. The eosinophils certainly fall within the normal limits. The absolute count is also unremarkable. D-dimer 0.4. Basic metabolic profile and liver function studies are unremarkable. Cardiac enzyme is negative x1, BNP was below the assay limits of normal, CRP 0.67 is minimally elevated. ESR 38. Recent urinalysis was negative for hematuria or proteinuria. Blood cultures x2, influenza A and B are negative. IMAGING STUDIES: Ultrasound of the bilateral lower extremities demonstrates no evidence of DVT. CTA of the chest demonstrates questionable pulmonary embolism. More striking, however, is the bilateral diffuse ground-glass opacifications throughout bilateral lung kaplan. There seems to be a distribution that favors the dependent posterior and inferior portions of the lung kaplan. Anteriorly, things are spared ever so slightly. That being said, the involvement is quite diffuse. ASSESSMENT: 1. Pulmonary infiltrate, characterized by diffuse ground-glass opacifications with a very subtle fullness in the interstitium. 2. Acute pulmonary embolism, possible. 3. Rheumatoid arthritis, only using TNF alpha inhibitor (golimumab). DISCUSSION AND PLAN: I have no idea what is going on here. The differential remains quite wide. It could be an effect of the medication, which is well documented to cause pneumonitis, pulmonary vasculopathies, ANCA positive vasculitis, and tuberculosis. Additionally, it could be an affect of her connective tissue disease. As such, we will go ahead and hold that medication for the time being. The urinalysis was negative for any hematuria making vasculitides a little less common. That being said, we will do an ANETTE, ANCA, CCP, rheumatoid factor, anti- Char-1 antibodies, and IgG4 level. In addition to these, Fungitell and fungal serologies will be obtained. Lastly, lipoid pneumonia certainly within our differential. I think that we were likely dealing with hematogenous event, however, because of the distribution on the CT of the chest. Usually, inhaled things would prefer to go to the superior portions of the lung. As such, I think hypersensitivity pneumonitis is a little less likely. Lastly, we will get a respiratory virus panel looking for viral issues. CMV and HSV should not be a culprit here. As such, I will hold off on those serologies. I give her nebulized medication. We will give her p.r.n. nebs if that initial one helps. I will empirically treat her for atypical infectious processes with doxycycline. We will also throw some Omnicef at her. This will be limited to a 5-day course. Once again, however, I do not think these things are going to be helpful. We will await a little bit of time to see if some of the serologies return. I will likely plan on doing a bronchoscopy on Saturday of next week. This will help us further delineate whether or not infectious process is occurring. If we identify initial on transbronchioles, that will be wonderful. But more than likely, if that is not helpful, we will be moving toward an open lung biopsy at some point in the future. Hopefully, this would not be in the inpatient setting. Pulmonary/Critical Care will continue to follow along. She will need to remain in-house for the time being. 70 minutes have been devoted to this patient in various activities. I personally reviewed all imaging studies and laboratory data noted within this document. For fifty percent of this time, I was interacting with the patient at the bedside or coordinating care with the care team. For the remainder of the time I was immediately available to the patient in the hospital unit. Job ID: [id number] [facility]ENTER[facility]antz
[2018-07-05] MEDS: Cefdinir 300 MG CAP PO SCH (20:15)
[2018-07-05] MEDS: Doxycycline 100 MG CAP PO SCH (20:15)
[2018-07-06] MEDS: Cefdinir 300 MG CAP PO SCH ×2 (08:12→21:58)
[2018-07-06] MEDS: Doxycycline 100 MG CAP PO SCH ×2 (08:13→21:58)
[2018-07-06] MEDS: Enoxaparin Sodium 120 MG/0.8 ML SYRINGE SC SCH ×2 (08:13→21:39)
[2018-07-06] MEDS: Famotidine/PF 20 mg/2ml Vial SLOW IVP SCH ×2 (08:16→21:43)
--- NOTE | 2018-07-06 14:29 | PRG ---
DATE OF SERVICE: 07/06/2018 SUBJECTIVE: The patient is seen and examined at the bedside. She seems to be doing slightly better. Her family is present in the room during my visit. OBJECTIVE: VITAL SIGNS: Blood pressure is 132/88, pulse is 87, temperature is 97.6, maximal temperature is 98.3, respiratory rate is 16, O2 saturation is 92% on room air. HEENT: Head is atraumatic and normocephalic. Eyes are PERRLA. Sclerae are nonicteric. Oral mucosa is moist. NECK: Supple. LUNGS: Few wheezes and few crackles at the base. HEART: S1 and S2 normal. No S3. No S4. ABDOMEN: Soft, nontender. Bowel sounds are present. No organomegaly. EXTREMITIES: No clubbing, cyanosis, or edema. NEUROLOGIC: She is alert and oriented x4. There are no any motor or sensory deficits. Cranial nerves are intact. LABORATORY DATA: Third generation TSH 2.1525. BNP less than 10.0. C-reactive protein 0.67, slightly elevated. Microbiology: Viral panel negative. Doppler of both lower extremities, no DVTs. IMPRESSION: 1. Acute pulmonary embolism as possible. 2. Bilateral diffuse ground-glass opacifications in both lower lobes, unclear etiology. 3. Rheumatoid arthritis, on biologic golimumab, which is TNF alpha-inhibitor. DISCUSSION: The patient was seen by Dr. Hernandez where differential diagnosis is very broad. He is planning to do bronchoscopy to get a sample and she might have further evaluation with open lung biopsy in the future. At this point, we are going to continue her current full dose of Lovenox for her PE and she is started on cefdinir and doxycycline by morgue technician, we will continue those two. Job ID: [id number]
[2018-07-06] MEDS ORDERED: Sodium Chloride 0.65% Nasal 44 ML BOT EA NARE PRN (20:30)
--- NOTE | 2018-07-06 21:16 | PRG ---
DATE OF SERVICE: 07/06/2018 SUBJECTIVE: Pulmonary Medicine. INTERVAL HISTORY: The patient is doing okay from respiratory standpoint. Whenever she gets up and walks around, she does have shortness of breath. It slows her down. She seems to think she has ever so slightly better. That being said, I think she just tells me what she wants me to hear. She denies any new chest pain, nausea, vomiting, or diarrhea. There has been no interval change to her condition. She is coughing up a little bit of yellow sputum. She had a little bit of nosebleed last night, which is improved since the humidified air. PHYSICAL EXAMINATION: VITAL SIGNS: Afebrile. Pulse 81, blood pressure 130/92, respirations 20, saturation 92% on room air. GENERAL: The patient is awake and alert, in no apparent distress. LUNGS: Decent air entry. There is good air entry without a prolonged expiratory phase, wheezing, rhonchi, or crackles. HEART: Normal rate and regular. ABDOMEN: Soft, nontender, nondistended. Bowel sounds are positive. MUSCULOSKELETAL: No cyanosis or clubbing. There is no pitting in the bilateral lower extremities. NEUROLOGIC: Grossly nonfocal. LABORATORY DATA: TSH is essentially unremarkable at this point. Urinalysis is negative. Respiratory virus panel is completely unremarkable. Blood cultures x2 are negative. ASSESSMENT: 1. Acute pulmonary embolism, possible. 2. Pulmonary infiltrate, characterized by diffuse ground-glass opacifications with a very subtle fullness in the interstitium, predominantly in the bibasilar/ dependent regions. 3. Rheumatoid arthritis, using TNF alpha inhibitor (golimumab). DISCUSSION AND PLAN: Differential remains wide. We have multiple serologies that are currently pending. I am not quite certain whether or not they have been collected. Pulmonary/Critical Care will continue to follow along. Once we started seeing some serologies return, if things come back unremarkable and her oxygen requirements do not improve, we will likely be looking at doing a bronchoscopy, Saturday. Job ID: [id number] [facility]
[2018-07-07] MEDS ORDERED: Furosemide 20 MG/2 ML VIAL SLOW IVP SCH (06:00)
[2018-07-07 09:45] LABS: Hemoglobin 14.3 g/dL (12.0-16.0); Platelet Count 251 thou/uL (130-400)
[2018-07-07] MEDS: Famotidine/PF 20 mg/2ml Vial SLOW IVP SCH (10:00)
[2018-07-07] MEDS: Cefdinir 300 MG CAP PO SCH ×2 (10:01→20:59)
[2018-07-07] MEDS: Doxycycline 100 MG CAP PO SCH ×2 (10:01→20:59)
[2018-07-07] MEDS: Enoxaparin Sodium 120 MG/0.8 ML SYRINGE SC SCH (10:03)
--- NOTE | 2018-07-07 11:08 | PRG ---
DATE OF SERVICE: 07/07/2018 SUBJECTIVE: The patient is seen and examined at the bedside. She seems to be doing somewhat better. Her appetite is fair. She had bowel movements. Her shortness of breath is somewhat improved. OBJECTIVE: VITAL SIGNS: Blood pressure is 109/73, pulse is 76, temperature is 97.8, maximal temperature is 99.3, respirations 18, O2 saturation is 92% on room air. HEENT: Head is atraumatic and normocephalic. Eyes are PERRLA. Sclerae are nonicteric. Oral mucosa is moist. NECK: Supple. Thyroid is not palpable. LUNGS: Few rales but minimal at both bases. HEART: S1 and S2 normal. No S3. No S4. ABDOMEN: Soft, obese, nontender. EXTREMITIES: No clubbing, cyanosis, or edema. NEUROLOGIC: She is alert and oriented x4. There are no any motor or sensory deficits present. Cranial nerves are intact. LABORATORY DATA: Hemoglobin of 14.3, hematocrit 43.9, and platelet count is 251,000. Creatinine 0.87. IMPRESSION: 1. Possible acute pulmonary embolism. 2. Bilateral diffuse ground-glass opacification in both lower lobes under diagnostic workup. 3. Rheumatoid arthritis. The patient was on biologic golimumab. DISCUSSION: The patient is doing clinically better. She does not require any O2 at this point. Equity Analyst wants to bronch her tomorrow morning. So far we just have her viral panel back, which is negative. The rest of the workup is still pending. We will continue full dose of Lovenox 110 mg every 12 hours. Continue both antibiotics cefdinir and doxycycline and Gilson reveles Job ID: [id number]
--- NOTE | 2018-07-07 17:03 | PRG ---
DATE OF SERVICE: 07/07/2018 SERVICE: Pulmonary Medicine. INTERVAL HISTORY: The patient is doing a little better from a respiratory standpoint. She continues to cough up yellow sputum. Denies any current chest pain, fevers, or chills. There were no overnight events. She seems to think that she is getting a little bit better, but her family is constantly reminding her that she is not being nearly as active as she was previously. Previously, she did not have a lot of symptoms when she was lying down. Otherwise, there has been no interval change to her condition. PHYSICAL EXAMINATION: VITAL SIGNS: Afebrile, pulse 87, blood pressure 125/57, respirations 20, saturation 87% on room air. GENERAL: The patient is awake and alert, in no apparent distress. LUNGS: Decent air entry. I do not appreciate any rhonchi or crackles. HEART: Normal rate and regular. ABDOMEN: Soft, nontender, and nondistended. Bowel sounds are positive. MUSCULOSKELETAL: No cyanosis or clubbing. There is no pitting in the bilateral lower extremities. NEUROLOGIC: Grossly nonfocal. LABORATORY DATA: Hemoglobin and platelet count are unremarkable. TSH and creatinine are also normal. Urinalysis is negative. Respiratory virus panel was negative for any viral pathogens. Blood cultures x2 are negative. ASSESSMENT: 1. Acute pulmonary embolism, likely. 2. Pulmonary infiltrate, characterized by diffuse ground-glass opacifications with very subtle fullness of the interstitium, predominantly in the bibasilar/dependent regions. 3. Rheumatoid arthritis, using TNF-alpha inhibitor (golimumab). DISCUSSION AND PLAN: Our differential remains wide. I am going to interrupt her Lovenox tonight and take her down for a bronchoscopy tomorrow morning. Multiple serologies are currently pending. Respiratory virus panel was unremarkable. She seems to think that things are ever so slightly better. That being said, we are not really comparing apples to apples. I have asked for her to get up and walk the hallways much more frequently, carrying a load characteristic of what she would do when she is doing laundry. She will let me know tomorrow morning whether or not she has significant improvement in symptoms based on this level of activity. Job ID: [id number]
[2018-07-07] MEDS: Famotidine 20 MG TAB PO SCH (21:00)
[2018-07-08] MEDS: Famotidine 20 MG TAB PO SCH ×2 (07:47→21:03)
[2018-07-08] MEDS: Cefdinir 300 MG CAP PO SCH ×2 (07:47→21:03)
[2018-07-08] MEDS: Doxycycline 100 MG CAP PO SCH ×2 (07:47→21:03)
[2018-07-08] MEDS ORDERED: Fentanyl 100 MCG/2 ML VIAL ONE (10:54)
[2018-07-08 12:16] LABS: IgG Subclass 4 32 mg/dL (2-96)
[2018-07-08] MEDS ORDERED: Glycopyrrolate 0.2 MG/ML 5 ML SYRINGE ONE (12:46)
[2018-07-08] MEDS ORDERED: Succinylcholine Chloride 20 MG/ML 10 ml SYRINGE FS ONE (12:46)
[2018-07-08] MEDS ORDERED: Ondansetron PF 4 MG/2 ML Vial ONE (12:46)
[2018-07-08] MEDS ORDERED: PROPOFOL 200 MG/20 ML VIAL ONE (12:46)
[2018-07-08] MEDS ORDERED: Lidocaine 1% PF 5 ML VIAL ONE (12:46)
[2018-07-08] MEDS ORDERED: Rocuronium Bromide 10 MG/ML (10ML VIAL) ONE (12:46)
[2018-07-08] MEDS: Acetaminophen 325 MG TAB PO PRN ×2 (13:29→22:41)
--- NOTE | 2018-07-08 14:42 | PQF ---
MICHAEL MARTINES ZBIGNIEW A MD [id number] [facility]255 [id number] CLINICAL DOCUMENTATION IMPROVEMENT CLARIFICATION FORM: ICD-10 Updated PLEASE DO AN ADDENDUM TO THE PROGRESS NOTE WITH ANY DOCUMENTATION UPDATES OR ADDITIONS AND CARRY THROUGH TO DC SUMMARY. THANK YOU. DATE: 07/08/18 ATTN: DR Keerthi TAYLOR Please exercise your independent, professional judgment in responding to the clarification form. Clinical indicators are provided on the bottom of this form for your review. Please check appropriate box(s): Conflicting documentation was noted in the Medical Record, please clarify if patient is being treated/monitored for: [ ]Acute pulmonary edema [ ] Acute pulmonary edema (not caused by acute heart failure) [ X ] Other diagnosis ___PE [ ] Unable to determine In addition, please specify: Present on Admission (POA): [ X ] Yes [ ] No [ ] Unable to determine For continuity of documentation, please document condition throughout progress notes and discharge summary. Thank You. CLINICAL INDICATORS - SIGNS / SYMPTOMS/ LABS 3/2 ED PHYSICIAN DX: PULMONARY EMBOLISM W/O COR PULMONALE, PULMONARY EDEMA 3/2 H & P (CAROLYN) IMAGING STUDIES- THE PATIENT HAS BILATERAL EXTENSIVE AIRSPACE OPACITIES CONCERNING FOR PULMONARY EDEMA RISK: PULMONARY EMBOLISM TREATMENTS: 3/2 PULMONARY CONSULT ANTICOAGULATION LOVENOX (3-PRESENT) THANK YOU ! MIHAI (This form is maintained as a part of the permanent medical record) 2014 [employer] All Rights Reserved [email or web address] [phone] [facility]
--- NOTE | 2018-07-08 14:56 | PRG ---
DATE OF SERVICE: 07/08/2018 SUBJECTIVE: The patient is seen and examined at the bedside. Her daughter is present in the room during my visit. She just came back from bronchoscopy done by Dr. Hernandez. We are awaiting for the report. OBJECTIVE: VITAL SIGNS: Blood pressure is 111/66, pulse is 78, temperature is 97.7, respiratory rate is 16, O2 saturation is 92% on 2 L by nasal cannula. HEENT: Head is atraumatic and normocephalic. Eyes are PERRLA. Sclerae are nonicteric. Oral mucosa is moist. NECK: Supple. LUNGS: Clear. HEART: S1, S2, normal. ABDOMEN: Soft and nontender. EXTREMITIES: No clubbing, cyanosis, or edema. LABORATORY DATA: IgG4 32, which is within normal limits. Serology for fungus is pending and multiple other tests are pending. IMPRESSION: 1. Possible acute pulmonary embolism. 2. Bilateral diffuse ground-glass opacification in both lower lobes at diagnostic workup. 3. Rheumatoid arthritis. The patient is on biologic golimumab prior to this hospitalization. DISCUSSION: The patient is doing clinically somewhat better. She just had her bronchoscopy. We should have results preliminary in the next few hours. We have IgG4 level back, which is within normal limits so far. She will continue DuoNeb p.r.n. and we are going to continue her pulmonary workup as per Dr. Hernandez. on Omnicef and Vibramycin, and make decision when she can be placed on anticoagulation. Job ID: [id number]
--- NOTE | 2018-07-08 16:29 | PRG ---
DATE OF SERVICE: 07/08/2018 SERVICE: Pulmonary Medicine. INTERVAL HISTORY: The patient is doing fine from respiratory standpoint. She is going down for bronchoscopy today. Denies any current chest pain, fevers, or chills. Otherwise, there has been no interval change to her condition. She continues to bring up yellow sputum. Her dyspnea with exertion is about stable if not ever so slightly improving. That being said, she has not had any dramatic improvement in symptoms. PHYSICAL EXAMINATION: VITAL SIGNS: Afebrile, pulse 72, blood pressure 116/69, respirations 14, and saturation 95% on 2 L nasal cannula. GENERAL: The patient is awake and alert, in no apparent distress. LUNGS: Decent air entry. I do not appreciate any wheezing, rhonchi, or crackles today. HEART: Normal rate and regular. ABDOMEN: Soft, nontender, and nondistended. Bowel sounds are positive. MUSCULOSKELETAL: No cyanosis or clubbing. There is no pitting in the bilateral lower extremities. NEUROLOGIC: Grossly nonfocal. LABORATORY DATA: Urinalysis was previously unremarkable. IgG4 subclass is 32, falling within the normal limits. Fungal serologies are pending, that being said, the [id number] is less than 80, which is normal suggesting we were not dealing with invasive fungal disease. Respiratory virus panel is unremarkable. Respiratory culture is currently pending. Few white blood cells were present and no organisms were identified. Blood cultures x2 are unremarkable. ASSESSMENT: 1. Acute pulmonary embolism, likely. 2. Pulmonary infiltrate, characterized by diffuse ground-glass opacifications with very subtle fullness in the interstitium, predominantly in the bibasilar/dependent regions. 3. Rheumatoid arthritis, using TNF alpha inhibitor (golimumab). DISCUSSION AND PLAN: We will proceed with bronchoscopy. Our differential remains quite wide and includes infectious disease and inflammatory conditions. After the bronchoscopy, the patient can be considered for discharge if she feels up to it. We may need to put her on oxygen for a brief period of time. My suspicion is that she has some sort of a progressive interstitial process and that will be heading toward an open lung biopsy, but after I can rule out infection, I would likely give her a brief course of empiric steroids before jumping to that step. Pulmonary/Critical Care will continue to follow. Once she stops coughing up blood following the procedure, she can be restarted on anticoagulation. At this point, we could probably use direct oral anticoagulant. Job ID: [id number]
[2018-07-08 17:12] LABS: Cytoplasmic (C-ANCA) <1:20 titer (Neg:<1:20); Myeloperoxidase AutoAbs <9.0 U/mL (0.0-9.0); Perinuclear (P-ANCA) <1:20 titer (Neg:<1:20); Proteinase-3 AutoAbs Less than 3.5 U/mL (0.0-3.5)
--- NOTE | 2018-07-08 19:16 | OP ---
DATE OF PROCEDURE: 07/08/2018 SERVICE: Pulmonary Medicine. PROCEDURE PERFORMED: Fiberoptic bronchoscopy with: 1. Visual airway inspection. 2. Bronchoalveolar lavage of the right middle lobe. 3. Transbronchial biopsies from the right lower lobe and right middle lobe. PREPROCEDURE DIAGNOSES: 1. Acute hypoxic respiratory failure. 2. Pulmonary infiltrate. POSTPROCEDURE DIAGNOSES: 1. Acute hypoxic respiratory failure. 2. Pulmonary infiltrate. PREANESTHESIA ASSESSMENT: H and P had been performed. The patient's medications and allergies were reviewed. CONSENT: Informed consent was obtained after discussing the risks, benefits, and rationale for performing the procedure as well as alternative options. DESCRIPTION OF PROCEDURE: A time-out was performed identifying the correct procedure and the patient with name and date of . A diagnostic fiberoptic bronchoscope was introduced through the 8.0-Yoruba endotracheal tube. The bronchoscope was advanced into the trachea, where tracheobronchial tree inspection was carried out with clear identification of the right upper lobe, right middle lobe, right lower lobe, left upper lobe, lingula, and left lower lobe. Anatomy was normal to the segmental level. A BAL was obtained from the right middle lobe. The transbronchial biopsies were then obtained from the right lower lobe and right middle lobe under fluoroscopic guidance. Hemostasis was verified, and bronchoscope was subsequently removed from the patient. Postprocedure fluoroscopy did not demonstrate a pneumothorax. FINDINGS: Secretions were moderate, but very stringy/tenacious. No endobronchial disease was identified. SPECIMENS OBTAINED: 1. Pathology on BAL and transbronchial biopsies. 2. Microbiology on BAL. COMPLICATIONS: None. ESTIMATED BLOOD LOSS: 5 mL. FLUOROSCOPY TIME: Less than 2 minutes. DISPOSITION: The patient will be transitioned back to her unit once she meets criteria. Job ID: [id number]
[2018-07-09] MEDS: Acetaminophen 325 MG TAB PO PRN (03:51)
[2018-07-09] MEDS: Cefdinir 300 MG CAP PO SCH (09:48)
[2018-07-09] MEDS: Doxycycline 100 MG CAP PO SCH (09:48)
[2018-07-09] MEDS: Famotidine 20 MG TAB PO SCH (09:48)
[2018-07-09 09:50] LABS: Hemoglobin 13.5 g/dL (12.0-16.0); Platelet Count 156 thou/uL (130-400)
[2018-07-09] MEDS ORDERED: Apixaban 5 MG TAB PO SCH ×2 (10:00→21:00)
--- NOTE | 2018-07-09 10:15 | PRG ---
DATE OF SERVICE: 07/09/2018 SERVICE: Pulmonary Medicine. INTERVAL HISTORY: The patient is doing okay from respiratory standpoint. Once again, she has been weaned down to room air. When she gets up and walks around , she still has some dyspnea on exertion. All told, she feels slightly improved. Otherwise, she did not have any significant events overnight. Currently, she remains comfortable. PHYSICAL EXAMINATION: VITAL SIGNS: Afebrile, pulse 72, blood pressure 108/58, respirations 22, saturation 95% on room air. GENERAL: The patient is awake and alert, in no apparent distress. LUNGS: Excellent air entry. There is no prolonged expiratory phase or wheezing present. HEART: Normal rate. Regular. ABDOMEN: Soft, nontender, nondistended. Bowel sounds are positive. MUSCULOSKELETAL: No cyanosis or clubbing. There is no pitting in the bilateral lower extremities. NEUROLOGIC: Grossly nonfocal. LABORATORY DATA: Anchors are completely unremarkable. IgG4 is negative. Urinalysis is without red blood cells, TSH, BNP, troponins x3 are unremarkable. Beta-d glucan is negative. Otherwise, multiple laboratories are still pending. Respiratory virus panel is negative. Preliminary acid-fast smear is negative, respiratory cultures also unremarkable. ASSESSMENT: 1. Acute hypoxic respiratory failure, minimally improved. 2. Acute pulmonary embolism, suspected. 3. Pulmonary infiltrate, characterized by ground-glass opacifications with very subtle fullness in the interstitium, predominantly in the bibasilar and posterior regions. 4. Rheumatoid arthritis, using a TNF alpha inhibitor (golimumab). DISCUSSION AND PLAN: The patient is more than stable for transition out of the hospital at this point. She will need a home O2 evaluation to see if she desaturates when walking. If she does, I think that temporary oxygen may be required. I will have her follow up with me in 2 to 3 weeks in the outpatient setting. At that time, if she is not significantly better, steroid taper will be considered. At that point, we will have enough time to see whether or not any of these cultures are going to be abnormal. Given the bland nature of the BAL, I am suspecting we are not dealing with an infectious process. My suspicion is we have an interstitial lung process that needs to be further delineated. This will be done so in the outpatient setting. I would like to give her a full 7-day course of the antibiotics she is currently on. If she remains in-house, I will continue to follow but from my perspective, the rest of this will be an outpatient investigation. Job ID: [id number] MTDD
[2018-07-09 11:23] LABS: ANA Symphony (Qualitative) Negative (Negative); ANA Symphony (Quantitative) 0.2 Ratio (< 0.7 Negative); CCP IgG Antibody 0.6 EliAU/mL (<7 Negative); EliA RAS New Method **** NEW METHOD ****; Rheumatoid Factor IgA Antibody 1.9 IU/mL (<14 Negative); dsDNA IgG Antibody Less than 0.5 IU/mL (<10 Negative)
[2018-07-09 12:05] VITALS: BP 118/70; TEMP 97.8
--- NOTE | 2018-07-09 13:29 | DIS ---
DATE OF ADMISSION: 07/04/2018 DATE OF DISCHARGE: 07/09/2018 FINAL DIAGNOSES: At the time of discharge, 1. Acute respiratory failure with hypoxemia. 2. Acute pulmonary embolism, suspected. 3. Pulmonary infiltrates bilaterally of unclear etiology. 4. Rheumatoid arthritis. PROCEDURE: Bronchoscopy by Dr. Hernandez. CONSULTANTS: Dr. Karlos Hernandez, Pulmonary/Critical Care. HOSPITAL COURSE: The patient is a 53-year-old female with past medical history of recent admission, which included cardiac catheterization without any significant abnormalities on the testing, who came to the hospital after having shortness of breath without any clear trigger. This was going on for few weeks and gradually getting worse. She is not able to do her activities of daily living. In the emergency room, her white count was 8.2, hemoglobin 14.6, MCV 90.7, platelet count 290. ESR 38. Sodium 140, potassium 3.9, chloride 105, CO2 of 25, BUN 19, creatinine 0.9, and glucose 89. C-reactive protein 0.67. CK 34. Troponin I negative. Beta natriuretic peptide was less than 10 and serum total protein 7.5. Urinalysis was negative. The patient had a CT of the chest done, which showed possible pulmonary embolism. She was started on anticoagulation with heparin, which later on during this hospitalization was changed to Eliquis. Her CT showed also bilateral haziness and ground-glass opacities in both lower lobes. This was unclear etiology. Paint [employer]er was consulted and the patient had full workup done. So far, part of the workup is back. IgG4 is 32, which is normal. Antiproteinase 3 is less than 3.5. Atypical p-ANCA is less than 1 to 20. Anti-myeloperoxidase is less than 9.0. ANCA is less than 1 to 20. ANCA pattern is less than 1 to 20. Fungus value was less than 31. The rest of a fungal serology is pending. She went through bronchoscopy with negative results for acid-fast bacilli on the smear. The culture is pending and showed few WBCs and no organisms seen. Respiratory panel PCR came back negative on all viruses and 2 blood cultures came back negative. I still do not see final report on BAL. PHYSICAL EXAMINATION: VITAL SIGNS: Clinically, she is doing well. She is off her oxygen with its desats status and she went down to 91 on exertion, but she is doing quite well. Otherwise, her blood pressure is 108/58, pulse is 72, and temperature is 97.9. During this hospitalization, she did not have any fever. Her respiratory rate is 22, O2 saturation is 95% on room air. HEENT: Head is atraumatic and normocephalic. LUNGS: Showing maybe few rales at both bases. Otherwise, normal. HEART: S1 and S2 normal. ABDOMEN: Soft, obese. EXTREMITIES: No clubbing, cyanosis, or edema. NEUROLOGICAL: She is alert and oriented x4. There is no any motor or sensory deficit present. Cranial nerves are intact. DISPOSITION: She is discharged home. DISCHARGE MEDICATIONS: Her medications at the time of discharge; 1. Eliquis 10 mg twice a day for additional 6 days, then she will be on 5 mg twice a day. 2. Omnicef 300 mg twice a day for a week. 3. Doxycycline hyclate 100 mg twice a day for a week. DISCHARGE INSTRUCTIONS: She is going to see Dr. Hernandez in 2 weeks and she is discharged home in good condition. She is going to stay on regular diet and activities as tolerated. TIME SPENT: The discharge is less than 30 minutes. Job ID: [id number]
[2018-07-10 11:24] LABS: QuantiFERON-TB Gold Plus Negative (Negative)
[2018-07-10 16:14] LABS: Blastomyces AB Negative (Neg:<1:1)
[2018-07-10 18:10] LABS: A. flavus Negative (Neg:<1:1); A. fumigatus Negative (Neg:<1:1); A. niger Negative (Neg:<1:1)
[2018-07-11 10:22] LABS: Fungus Stain Final report (.)
== END 2018-07-09 12:50 | disposition home or self-care (01) | DRG 166 ==
LOC: ERS 17:38 → 2NO 20:30 → 3SE 07-06 15:41
PROVIDERS: ADMIT Hospitalist; ATTEND Hospitalist
PROC: 0BBF8ZX Excision of Right Lower Lung Lobe, Via Natural or Artificial Opening Endoscopic, Diagnostic (ICD-10-PCS; principal; 2018-07-08)
PROC: 0BBD8ZX Excision of Right Middle Lung Lobe, Via Natural or Artificial Opening Endoscopic, Diagnostic (ICD-10-PCS; 2018-07-08)
PROC: 0B9D8ZX Drainage of Right Middle Lung Lobe, Via Natural or Artificial Opening Endoscopic, Diagnostic (ICD-10-PCS; 2018-07-08)
DX: I26.99 Other pulmonary embolism without acute cor pulmonale (principal); J96.01 Acute respiratory failure with hypoxia; I31.9 Disease of pericardium, unspecified; M06.9 Rheumatoid arthritis, unspecified; R91.8 Other nonspecific abnormal finding of lung field; Z79.899 Other long term (current) drug therapy; Z79.1 Long term (current) use of non-steroidal anti-inflammatories (NSAID)
CPT/HCPCS: 36415; 71045; 71046; 71275; 80048; 80053; 80061; 81003; 82550; 82565; 82787; 83520; 83880; 84443; 84484; 85014; 85018; 85025; 85049; 85379; 85652; 86038; 86140; 86200; 86225; 86256; 86480; 86612; 86635; 86698; 87040; 87070; 87102; 87116; 87205; 87206; 87449; 87633; 87798; 87804; 88112; 88305; 88312; 88313; 88342; 93005; 93010; 93017; 93306; 93458; 93970; 94760; 96360; 96361; 96365; 96368; 96372; 96375; 99152; 99153; C1769; G0378; J1200; J1644; J1650; J1940; J1956; J2001; J2250; J2405; J2543; J2704; J3010; J3370; Q9966; Q9967; S0028

== ENCOUNTER 2018-08-26 20:30 | Outpatient (CLI) | payer BC | END 2018-08-26 20:31 | disposition home or self-care (01) | LOC: SLEEPLAB 20:30 | PROVIDERS: ATTEND Internal Medicine | DX: G47.33 Obstructive sleep apnea (adult) (pediatric) (principal); K21.9 Gastro-esophageal reflux disease without esophagitis; R06.83 Snoring; R09.89 Other specified symptoms and signs involving the circulatory and respiratory systems; R53.83 Other fatigue; E66.9 Obesity, unspecified; R51 Headache; Z68.38 Body mass index [BMI] 38.0-38.9, adult | CPT/HCPCS: 95811 ==

== ENCOUNTER 2018-09-09 12:52 | Outpatient (CLI) | payer BC ==
--- NOTE | 2018-09-09 14:16 | CT ---
CT Chest WO Con HISTORY: Evaluation for pulmonary fibrosis. Patient has shortness of breath. Abnormal CT performed on 07/04/2018. COMPARISON: 07/04/2018 exam FINDINGS: The mosaic lung pattern that was seen on the prior examination shows substantial improvemen t as compared to the prior exam. Areas of groundglass opacity have largely resolved although there is still areas of lucency and subtle groundglass opacity. The overall mosaic pattern is significantly improved since the prior exam. There are no associated findings such as bronchiectatic physicists or honeycombing. I do not see any evidence for emphysematous type change. There are no pulmonary nodu les. Mediastinal structures appear unremarkable. The hilar regions appear unremarkable. Visualized liver parenchyma shows no focal findings. IMPRESSION: Almost complete resolution of the mosaic lung pattern still with subtle areas of lucency and groundglass opacity present. The appearance of the mosaic lung pattern is less geographic than it was on the prior exam. With the consideration that the abnormality is related to a mosaic lung pat tern rather than air trapping the primary differential considerations would include hypersensitivity pneumonitis and constrictive bronchiolitis. Respiratory bronchiolitis and desquamati ve interstitial pneumonia and smokers would be less likely considerations given the resolution. I think given the fact that there is been fairly rapid resolution the possibility of an atypical infect ion would have to be another consideration. The other possibility would be a combination of 2 entities such as asthma plus pulmonary edema this would be considered less likely given the pattern.
== END 2018-09-09 12:53 | disposition home or self-care (01) ==
LOC: CT 12:52
PROVIDERS: ATTEND Internal Medicine
DX: J84.10 Pulmonary fibrosis, unspecified (principal)
CPT/HCPCS: 71250

== ENCOUNTER 2018-10-30 13:12 | Outpatient (CLI) | payer BC | END 2018-10-30 13:13 | disposition home or self-care (01) | LOC: CP 13:12 | PROVIDERS: ATTEND Internal Medicine | DX: J84.9 Interstitial pulmonary disease, unspecified (principal) | CPT/HCPCS: 94060; 94727; 94729 ==

== ENCOUNTER 2018-12-08 09:28 | Outpatient (CLI) | payer BC ==
--- NOTE | 2018-12-08 11:15 | CT ---
CT chest noncontrast high-resolution HISTORY: Interstitial lung disease. J 84.9. COMPARISON: 09/09/2018 and 07/04/2018. FINDINGS: Lungs are well-inflated. The peripheral most very subtle ground glass opacity of the lungs on the prior study has now resolved. No new areas of infiltrate. No pneumothorax or pleural fluid. No evidence of bronchiectasis. Minimal peripheral linear peripheral densities at the posterior lung b ases with patient supine disappear with patient prone, indicative of dependent atelectasis. High-resolution technique does not well evaluate for pulmonary nodules. Lack of contrast limits evalu ation of the soft tissues. No bulky mediastinal adenopathy. Very small hiatal hernia. IMPRESSION: Now complete resolution of the previous groundglass parenchymal opacities. Resolved infec tion? No new abnormalities are demonstrated.
== END 2018-12-08 09:29 | disposition home or self-care (01) ==
LOC: BICCT 09:28
PROVIDERS: ATTEND Internal Medicine
DX: J84.9 Interstitial pulmonary disease, unspecified (principal)
CPT/HCPCS: 71250

== ENCOUNTER 2019-03-19 14:55 | Outpatient (CLI) | payer BC ==
--- NOTE | 2019-03-19 15:27 | RAD ---
Exam: 2 views lumbar spine HISTORY: Low back pain. COMPARISON: none FINDINGS: 5 lumbar type vertebra. Lumbar spine vertebral body height is maintained. No fracture. No s ignificant loss of disc space height. Spondylolisthesis: 2.3 mm retrolisthesis L3 upon L4. No associated spondylolysis IMPRESSION: Grade 1 retrolisthesis of L3 upon L4.
--- NOTE | 2019-03-19 15:47 | BD ---
Exam: DEXA Bone Density 03/19/19 HISTORY: Postmenopausal female undergoing screening for osteoporosis. Lumbar Spine: BMD (g/cm2) T-SCORE L1 0.824 -1.5 L2 0.859 -1.5 L3 0.893 -1.7 L4 0.940 -1.1 L1-L4 0.879 -1.5 Femoral Neck: 0.815 -0.3 Total Femur: 1.137 1.6 FRAX: WHO fracture risk assessment tool reports a ten year fracture risk in an untreated patient at 5 .4% for major osteoporotic fracture and 0.1% for hip fracture in an untreated patient. Impression: Osteopenia of the lumbar spine correlating with a moderately increased risk for fracture. Transcribed Date/Time: 03/19/2019 3:53 PM
== END 2019-03-19 14:56 | disposition home or self-care (01) ==
LOC: BICMAMMO 14:55
PROVIDERS: ATTEND Internal Medicine Rheumatology
DX: Z13.820 Encounter for screening for osteoporosis (principal); Z78.0 Asymptomatic menopausal state; M54.5 Low back pain; M85.88 Other specified disorders of bone density and structure, other site; M43.16 Spondylolisthesis, lumbar region
CPT/HCPCS: 72100; 77080

== ENCOUNTER 2019-06-17 09:56 | Outpatient (CLI) | payer BC ==
--- NOTE | 2019-06-17 10:46 | RAD ---
PA AND LATERAL VIEWS OF THE CHEST: HISTORY: Dyspnea. FINDINGS: The heart size is normal. The lungs are expanded without focal areas of consolidation, pneumothorace s, or pleural effusions. No acute osseous abnormalities are seen. IMPRESSION: No radiographic evidence of acute cardiopulmonary process. POS: OFF
== END 2019-06-17 09:57 | disposition home or self-care (01) ==
LOC: RAD 09:56
PROVIDERS: ATTEND Internal Medicine
DX: R06.00 Dyspnea, unspecified (principal)
CPT/HCPCS: 71046

== ENCOUNTER 2019-12-04 09:24 | Outpatient (CLI) | payer BC ==
--- NOTE | 2019-12-04 10:07 | CT ---
Exam: High-resolution chest CT HISTORY: Rheumatoid arthritis. Interstitial lung disease COMPARISON: 12/08/2018. TECHNIQUE: Noncontrast high-resolution CT is performed with the patient is supine and prone position FINDINGS: Mediastinum: No masses or lymphadenopathy or hematoma. Upper abdomen: No acute abnormality. Trachea and central bronchi: Patent. Pleural effusion: None. Pneumothorax: None. Bronchiectasis: None. Masses or consolidation: None. Minimal dependent atelectatic changes. Interstitium: No significant septal or paraseptal thickening. No evidence of honeycombing. Nodules: Ill-defined groundglass nodule with slight irregular margination in the left lower lobe asya uring 0.6 cm on the coronal images. Incomplete characterization and evaluation on this high-resolution study. Nodule is not appreciated on exam from 09/19/2018. IMPRESSION: 1. No significant interstitial lung disease. 2. No evidence of bronchiectasis. 3. Incompletely evaluated irregular marginated groundglass nodule in the left lower lobe. Code LN Transcribed Date/Time: 12/04/2019 11:03 AM
== END 2019-12-04 09:25 | disposition home or self-care (01) ==
LOC: BICCT 09:24
PROVIDERS: ATTEND Internal Medicine Critical Care Medicine
DX: M06.9 Rheumatoid arthritis, unspecified (principal); J84.10 Pulmonary fibrosis, unspecified; R91.1 Solitary pulmonary nodule
CPT/HCPCS: 71250

== ENCOUNTER 2020-01-25 09:49 | Outpatient (CLI) | payer BC ==
--- NOTE | 2020-01-25 10:19 | RAD ---
XR Chest Pa Lat STANDARD HISTORY: Dyspnea COMPARISON: 06/17/2019 FINDINGS: The heart size is normal. The lungs are well expanded without focal areas of consolidation, pneumothorax or pleural effusions. IMPRESSION: No radiographic evidence of acute cardiopulmonary process.
== END 2020-01-25 09:50 | disposition home or self-care (01) ==
LOC: BICRAD 09:49
PROVIDERS: ATTEND Internal Medicine Critical Care Medicine
DX: R06.00 Dyspnea, unspecified (principal)
CPT/HCPCS: 71046

== ENCOUNTER 2020-03-02 13:36 | Outpatient (CLI) | payer BC ==
--- NOTE | 2020-03-02 13:58 | RAD ---
XR Knee Rt 2 View HISTORY: Pain in the right knee FINDINGS: No fracture or dislocation is identified. Degenerative changes are present
--- NOTE | 2020-03-02 13:58 | RAD ---
XR Knee Lt 2 View HISTORY: Pain in the left knee FINDINGS: No fracture or dislocation is identified. Degenerative changes are present.
== END 2020-03-02 13:37 | disposition home or self-care (01) ==
LOC: BICRAD 13:36
PROVIDERS: ATTEND Physician Assistant
DX: M25.561 Pain in right knee (principal); M25.562 Pain in left knee

== ENCOUNTER 2020-05-26 07:06 | Day surgery (SDC) | payer BC ==
[2020-05-24 09:55] VITALS: BMI 49.8
[2020-05-26] MEDS ORDERED: PROPOFOL 200 MG/20 ML VIAL ONE (09:08)
[2020-05-26] MEDS ORDERED: Lidocaine 1% PF 5 ML VIAL ONE (09:08)
--- NOTE | 2020-05-26 10:47 | OP ---
DATE OF PROCEDURE: 05/26/2020 PROCEDURES PERFORMED: Esophagogastroduodenoscopy and colonoscopy. PREOPERATIVE DIAGNOSES: Dysphagia and colon cancer screening. DESCRIPTION OF PROCEDURE: Informed consent was obtained from the patient. She was sedated with total intravenous anesthesia. The bite block was placed and the endoscope was advanced easily to the second portion of the duodenum and retroflexion was performed in the stomach. The esophagus was normal. The GE junction was normal. The stomach was normal including retroflexed views. The pylorus and first and second portions of the duodenum were normal. The patient was turned around. Rectal exam was performed and was normal. The preparation quality was good. The colonoscope was advanced to the cecum, where the ileocecal valve and appendiceal orifice were clearly identified. The colonic mucosa was normal throughout. Retroflexed views in the rectum were normal. IMPRESSION: 1. Normal esophagogastroduodenoscopy. 2. Normal colonoscopy. 3. Her dysphagia symptoms have resolved with the higher dose proton pump inhibitor. At this point, we can back the pantoprazole to be taken once daily 30 minutes before supper. 4. Follow up in the office as needed. Job ID: [id number]
[2020-05-26] MEDS ORDERED: Acetaminophen 500 MG TAB ONE (11:04)
== END 2020-05-26 11:35 | disposition home or self-care (01) ==
LOC: SDC 07:06
PROVIDERS: ATTEND Internal Medicine Gastroenterology
PROC: 0DJD8ZZ Inspection of Lower Intestinal Tract, Via Natural or Artificial Opening Endoscopic (ICD-10-PCS; principal; 2020-05-26)
PROC: 0DJ08ZZ Inspection of Upper Intestinal Tract, Via Natural or Artificial Opening Endoscopic (ICD-10-PCS; principal; 2020-05-26)
DX: Z12.11 Encounter for screening for malignant neoplasm of colon (principal); R13.19 Other dysphagia; M35.3 Polymyalgia rheumatica; M06.9 Rheumatoid arthritis, unspecified; E66.01 Morbid (severe) obesity due to excess calories; Z68.42 Body mass index [BMI] 45.0-49.9, adult; Z79.899 Other long term (current) drug therapy; Z88.1 Allergy status to other antibiotic agents; Z86.19 Personal history of other infectious and parasitic diseases
CPT/HCPCS: J2704

== ENCOUNTER 2020-10-25 12:42 | Outpatient (CLI) | payer BC | END 2020-10-25 12:43 | disposition home or self-care (01) | LOC: BICCT 12:42 | PROVIDERS: ATTEND Internal Medicine Critical Care Medicine | DX: M05.19 Rheumatoid lung disease with rheumatoid arthritis of multiple sites (principal); J84.9 Interstitial pulmonary disease, unspecified | CPT/HCPCS: 71250 ==